=== PATIENT | male | born 1990 ===

== ENCOUNTER 2017-09-18 17:36 | Emergency (ER) | payer OTHER ==
[2017-09-18 17:36] VITALS: BMI 34.6
[2017-09-18] MEDS ORDERED: Sodium Chloride 0.9% 1,000 ML IV STA (19:06)
[2017-09-18] MEDS ORDERED: Iohexol 240 (50 ml) ONE (19:12)
--- NOTE | 2017-09-18 19:32 | ED PDOC ---
Arrival/HPI - General Chief Complaint: Abdominal Pain Time Seen by Provider: 09/18/17 18:22 Historian: Patient - History of Present Illness Narrative History of Present Illness (Text): 09/18/17 19:02 A 27 year old male presents to the emergency department complaining of intermittent mid-abdominal pain for 1.5 months. Patient describes pain as a pressure-like sensation. Also, he experiences a burning sensation in the epigastric area which radiates to the sternal chest area ad up into the throat with associated diarrhea. Patient states symptoms occur anytime when eating. Denies nausea, vomiting, fever, urinary output changes, weight loss, or any other complaints. No past abdominal surgeries. No PMD Past Medical History - Provider Review Nursing Documentation Reviewed: Yes - Reproductive Currently : No - Cardiac Hx Cardiac Disorders: No - Pulmonary Hx Respiratory Disorders: No - Neurological Hx Neurological Disorder: No - HEENT Hx Sinusitis: Yes - Renal Hx Renal Disorder: No - Endocrine/Metabolic Hx Endocrine Disorders: No - Hematological/Oncological Hx Blood Disorders: No - Integumentary Hx Dermatological Disorder: No - Musculoskeletal/Rheumatological Hx Musculoskeletal Disorders: No - Gastrointestinal Hx Gastrointestinal Disorders: No - Genitourinary/Gynecological Hx Genitourinary Disorders: No - Psychiatric Hx Psychophysiologic Disorder: No Hx Substance Use: No - Surgical History Other/Comment: NASAL Family/Social History - Physician Review Nursing Documentation Reviewed: Yes Family/Social History: No Known Family HX Smoking Status: Never Smoked Hx Alcohol Use: Yes Frequency of alcohol use: Socially Hx Substance Use: No Allergies/Home Meds Allergies/Adverse Reactions: Allergies No Known Allergies Allergy (Verified 09/18/17 18:03) Review of Systems - Physician Review All systems were reviewed & negative as marked: Yes - Review of Systems Constitutional: absent: Fatigue, Weight Change, Fevers ENT: Other (throat pain) Respiratory: absent: SOB, Cough, Sputum Cardiovascular: Chest Pain. absent: Palpitations, Edema Gastrointestinal: Abdominal Pain (epigastric region), Diarrhea. absent: Nausea , Vomiting Genitourinary Male: absent: Dysuria, Frequency, Hematuria, Urinary Output Changes Musculoskeletal: absent: Arthralgias, Back Pain, Neck Pain Skin: absent: Rash, Pruritis, Skin Lesions Neurological: absent: Headache, Dizziness, Focal Weakness Physical Exam Vital Signs Reviewed: Yes Vital Signs Temp Pulse Resp BP Pulse Ox 09/18/17 21:36 82 16 121/72 100 09/18/17 17:57 98.2 F 85 18 120/75 97 Temperature: Afebrile Blood Pressure: Normal Pulse: Regular Respiratory Rate: Normal Appearance: Positive for: Well-Appearing Pain Distress: Mild Mental Status: Positive for: Alert and Oriented X 3 - Systems Exam Head: Present: Atraumatic, Normocephalic Pupils: Present: PERRL Mouth: Present: Moist Mucous Membranes Pharnyx: Present: Normal Neck: Present: Normal Range of Motion. No: MIDLINE TENDERNESS Respiratory/Chest: Present: Clear to Auscultation, Good Air Exchange. No: Respiratory Distress, Wheezes, Rhonchi Cardiovascular: Present: Regular Rate and Rhythm, Normal S1, S2. No: Murmurs Abdomen: Present: Tenderness (mild lower abdominal tenderness). No: Rebound, Guarding, Hernias, Mass/Organomegaly, Scars Back: Present: Normal Inspection. No: CVA Tenderness, Midline Tenderness Upper Extremity: Present: Normal Inspection, Normal ROM, NORMAL PULSES, Neurovascularly Intact, Capillary Refill < 2s. No: Edema Lower Extremity: Present: Normal Inspection, NORMAL PULSES, Neurovascularly Intact, Capillary Refill < 2 s. No: Edema, Tenderness, Swelling Neurological: Present: GCS=15, CN II-XII Intact, Speech Normal, Motor Func Grossly Intact, Normal Sensory Function Skin: Present: Warm, Dry, Normal Color. No: Rashes Psychiatric: Present: Alert, Oriented x 3 Medical Decision Making ED Course and Treatment: 09/18/17 19:06 Impression: 27 year old male with intermittent mid-abdominal pain. Physical exam shows mild lower abdominal tenderness. Plan: -- Abd/Pelvis CT -- Labs -- Pepcid -- IV Fluids -- Reassess and disposition Prior Visits: Notes and results from previous visits were reviewed. Patient was last seen in the emergency department on 12/09/2016 for testicular/flank pain. Patient was discharged home. Progress Notes: On re-evaluation, patient is laying in bed comfortably in no acute distress, reports improvement of symptoms. Reports no abdominal pain or nausea at this time. On exam, abdomen remains soft with no tenderness, no guarding, no rebound. Labs reviewed and are wnl. Patient is tolerating po contrast. CT still pending. On second re-evaluation, patient is sitting up comfortably with no complaints at this time. Reports still no abdominal pain. Abdomen still soft and nontender. CT results reviewed and d/w the patient in great detail. Based on history, exam and diagnostic results plan will be for outpatient f/u. Dx of dyspepsia d/w the patient in great detail. Follow up with the clinic in 1-2 days without fail. Advised to take medication as prescribed. Return to the emergency room at any time for any new or worsening symptoms. Patient states he fully agrees with and understands discharge instructions. States that he agrees with the plan and disposition. Verbalized and repeated discharge instructions and plan. I have given the patient opportunity to ask any additional questions. - Lab Interpretations Lab Results: 09/18/17 19:30 09/18/17 19:30 Lab Results 09/18/17 19:30: Sodium 140, Potassium 4.1, Chloride 99, Carbon Dioxide 26, Anion Gap 18, BUN 18, Creatinine 0.8, Est GFR ( Amer) > 60, Est GFR (Non- Af Amer) > 60, Random Glucose 101, Calcium 9.7, Total Bilirubin 0.7, AST 43, ALT 76 H, Alkaline Phosphatase 107, Total Protein 8.2, Albumin 4.7, Globulin 3.5 , Albumin/Globulin Ratio 1.3, Lipase 34 09/18/17 19:30: WBC 6.1 D, RBC 4.51, Hgb 14.6, Hct 42.2, MCV 93.6, MCH 32.4, MCHC 34.6, RDW 12.6, Plt Count 288, MPV 9.9, Gran % 45.3 L, Lymph % (Auto) 40.7 H, Levy % (Auto) 11.3 H, Eos % (Auto) 2.5, Baso % (Auto) 0.2, Gran # 2.77, Lymph # 2.5, Levy # 0.7 H, Eos # 0.2, Baso # 0.01 - RAD Interpretation Narrative RAD Interpretations (Text): 09/18/17 23:50 CT A/P w/ PO & IV contrast : FINDINGS: Limitations: Motion artifact - mild. Lower thorax: Minimal atelectasis/scarring. ABDOMEN: Liver: Unremarkable. No mass. Gallbladder and bile ducts: No calcified stones. No ductal dilation. Pancreas: No ductal dilation. No mass. Spleen: No splenomegaly. Adrenals: No mass. Kidneys and ureters: No mass. No hydronephrosis. Stomach and bowel: No definite mural thickening. No obstruction. Appendix: Normal caliber. No inflammation. PELVIS: Bladder: Unremarkable. Reproductive: Unremarkable as visualized. ABDOMEN and PELVIS: Intraperitoneal space: No significant fluid collection. No free air. Bones/joints: No acute fracture. Soft tissues: Unremarkable. Vasculature: Unremarkable. No aneurysm. Lymph nodes: No pathologically enlarged lymph nodes. IMPRESSION: 1. No definite acute intraabdominal abnormality. 2. Incidental/non-acute findings are described above. Dictated By: Thierno Bethea MD Dictated Date/Time: 09/18/172153 Radiology Orders: 09/18/17 19:08 ABD PELVIS PO & IV CONTRAST [CT] Stat - Medication Orders Current Medication Orders: Discontinued Medications Famotidine (Pepcid) 20 mg IVP STAT STA Stop: 09/18/17 19:07 Last Admin: 09/18/17 19:53 Dose: 20 mg IVP Administration Document 09/18/17 19:53 HI (Rec: 09/18/17 19:53 MD [id number]) Charges for Administration # of IVP Administrations 1 Sodium Chloride (Sodium Chloride 0.9%) 1,000 mls @ 1,000 mls/hr IV .Q1H STA Stop: 09/18/17 20:05 Last Admin: 09/18/17 19:30 Dose: 1,000 mls/hr eMAR Start Stop Document 09/18/17 19:30 HI (Rec: 09/18/17 19:53 MD [id number]) Intravenous Solution Start Date 09/18/17 Start Time 19:30 - PA / CASHIER AND SALESPERSON / Resident Statement MD/ has reviewed & agrees with the documentation as recorded. - Scribe Statement The provider has reviewed the documentation as recorded by the Naya Mathur Provider Scribe Attestation: All medical record entries made by the uJdyibrita were at my direction and personally dictated by me. I have reviewed the chart and agree that the record accurately reflects my personal performance of the history, physical exam, medical decision making, and the department course for this patient. I have also personally directed, reviewed, and agree with the discharge instructions and disposition. Disposition/Present on Arrival - Present on Arrival Any Indicators Present on Arrival: No History of DVT/PE: No History of Uncontrolled Diabetes: No Urinary Catheter: No History of Decub. Ulcer: No History Surgical Site Infection Following: None - Disposition Have Diagnosis and Disposition been Completed?: Yes Diagnosis: Abdominal pain, Dyspepsia Disposition: HOME/ ROUTINE Disposition Time: 23:23 Patient Plan: Discharge Patient Problems: Current Active Problems Problem Status Onset Abdominal pain Acute Dyspepsia Acute Condition: STABLE Discharge Instructions (ExitCare): Chronic Indigestion (ED), Acute Abdominal Pain (ED) Print Language: ROMANIAN Additional Instructions: Thank you for letting us take care of you today. You were treated for abdominal pain, dyspepsia. The emergency medical care you received today was directed at your acute symptoms. If you were prescribed any medication, please fill it and take as directed. It may take several days for your symptoms to resolve. Return to the Emergency Department if your symptoms worsen, do not improve, or if you have any other problems. Please contact your doctor in 2 days for re-evaluation and follow up / or call one of the physicians/clinics you have been referred to that are listed on the Patient Visit Information form that is included in your discharge packet. Bring any paperwork you were given at discharge with you along with any medications you are taking to your follow up visit. Our treatment cannot replace ongoing medical care by a primary care provider (PCP) outside of the emergency department. Thank you for allowing the [facility] team to be part of your care today. If you had a CT scan: A Radiologist will review the ED reading if any change in treatment is needed we will contact you. Prescriptions: Famotidine [Pepcid] 40 mg PO DAILY #30 tablet Referrals: Thee Mc, [Primary Care Provider] - Follow up with primary [facility] at [facility] [Outside] - Follow up with primary Forms: Sansan (South Korean), WORK NOTE
[2017-09-18 19:53] LABS: BASO # 0.01 K/mm3 (0.0-2.0); BASO % 0.2 % (0.0-3.0); EOS # 0.2 (0.0-0.7); EOS % 2.5 % (1.5-5.0); GRAN # 2.77 (1.4-6.5); GRAN % 45.3 % (50.0-68.0); HEMATOCRIT 42.2 % (42.0-52.0); LYMPH # 2.5 (1.2-3.4); LYMPH % 40.7 % (22.0-35.0); MEAN CELL VOLUME 93.6 fl (80.0-105.0); MEAN CORPUSCULAR HEMOGLOBIN 32.4 pg (25.0-35.0); MEAN CORPUSCULAR HGB CONC 34.6 g/dl (31.0-37.0); MEAN PLATELET VOLUME 9.9 fl (7.0-11.0); MONO # 0.7 (0.1-0.6); MONO % 11.3 % (1.0-6.0); RED CELL DISTRIBUTION WIDTH 12.6 % (11.5-14.5); WHITE BLOOD COUNT 6.1 10^3/ul (4.5-11.0)
[2017-09-18 19:56] LABS: ALB/GLOB RATIO 1.3 (1.1-1.8); ALKALINE PHOSPHATASE 107 U/L (38-126); ALT/SGPT 76 U/L (7-56); AST/SGOT 43 U/L (17-59); BILIRUBIN,TOTAL 0.7 mg/dL (0.2-1.3); BLOOD UREA NITROGEN 18 mg/dL (7-21); CALCIUM 9.7 mg/dL (8.4-10.5); CARBON DIOXIDE 26 mmol/L (21-33); CHLORIDE 99 mmol/L (98-107); GFR AFRICAN-AMERICAN > 60; GLUCOSE,RANDOM 101 mg/dL (70-110); LIPASE 34 U/L (23-300); POTASSIUM 4.1 mmol/L (3.6-5.0); SODIUM 140 mmol/L (132-148); TOTAL PROTEIN 8.2 g/dL (5.8-8.3)
[2017-09-18] MEDS ORDERED: Iohexol 350 MG/100 ML VIAL ONE (20:26)
[2017-09-18 21:44] VITALS: O2SAT 100
--- NOTE | 2017-09-18 21:54 | CT ---
EXAM: CT Abdomen and Pelvis With Intravenous Contrast CLINICAL HISTORY: 27 years old, male; Pain; Abdominal pain; Acute; Additional info: Lower abd pain, diarrhea TECHNIQUE: Axial computed tomography images of the abdomen and pelvis with intravenous contrast. All CT scans at this facility use one or more dose reduction techniques, viz.: automated exposure control; ma/kV adjustment per patient size (including targeted exams where dose is matched to indication; i.e. head); or iterative reconstruction technique. Coronal and sagittal reformatted images were created and reviewed. CONTRAST: 100 mL of OMNI administered intravenously. COMPARISON: CT - ABD PELVIS W/O PO OR IV CONT 2016-12-09 08:35 FINDINGS: Limitations: Motion artifact - mild. Lower thorax: Minimal atelectasis/scarring. ABDOMEN: Liver: Unremarkable. No mass. Gallbladder and bile ducts: No calcified stones. No ductal dilation. Pancreas: No ductal dilation. No mass. Spleen: No splenomegaly. Adrenals: No mass. Kidneys and ureters: No mass. No hydronephrosis. Stomach and bowel: No definite mural thickening. No obstruction. Appendix: Normal caliber. No inflammation. PELVIS: Bladder: Unremarkable. Reproductive: Unremarkable as visualized. ABDOMEN and PELVIS: Intraperitoneal space: No significant fluid collection. No free air. Bones/joints: No acute fracture. Soft tissues: Unremarkable. Vasculature: Unremarkable. No aneurysm. Lymph nodes: No pathologically enlarged lymph nodes. IMPRESSION: 1. No definite acute intraabdominal abnormality. 2. Incidental/non-acute findings are described above.
[2017-09-19 00:15] VITALS: BP 116/67; PULSE 76; RESP 18; TEMP 98.3
== END 2017-09-18 23:50 | disposition home or self-care (01) ==
LOC: ED 17:36
DX: R10.13 Epigastric pain (principal)
CPT/HCPCS: 74177; 80053; 83690; 85025; 96374; 99284; J7040; Q9966; Q9967

== ENCOUNTER 2018-05-16 13:55 | Emergency (ER) | payer OTHER ==
[2018-05-16 14:16] VITALS: TEMP 98.2
[2018-05-16 14:18] VITALS: BMI 29.9
--- NOTE | 2018-05-16 14:42 | ED PDOC ---
Arrival/HPI - General Time Seen by Provider: 05/16/18 14:35 Historian: Patient - History of Present Illness Narrative History of Present Illness (Text): 28 y/o M c PMHx gastritis p/w fall shortly prior to arrival. Patient states he was on top of a 9-10 step ladder sanding a ceiling when the ladder slipped from under him and he fell that height and struck his head on the floor and felt an odd moving sensation in his neck. He now complains of pain to the head, posterior neck, and R shoulder. Denies pain elsewhere. Denies LOC, nausea, vomiting, numbness, motor weakness. No PMD Time/Duration: Prior to Arrival Symptom Onset: Sudden Symptom Course: Unchanged Context: Work Past Medical History - Provider Review Nursing Documentation Reviewed: Yes - Cardiac Hx Cardiac Disorders: No - Pulmonary Hx Respiratory Disorders: No - Neurological Hx Neurological Disorder: No - Renal Hx Renal Disorder: No - Endocrine/Metabolic Hx Endocrine Disorders: No - Hematological/Oncological Hx Blood Disorders: No - Integumentary Hx Dermatological Disorder: No - Musculoskeletal/Rheumatological Hx Musculoskeletal Disorders: No - Gastrointestinal Hx Gastrointestinal Disorders: No - Genitourinary/Gynecological Hx Genitourinary Disorders: No - Psychiatric Hx Psychophysiologic Disorder: No Hx Substance Use: No - Surgical History Other/Comment: NASAL Family/Social History - Physician Review Nursing Documentation Reviewed: Yes Family/Social History: No Known Family HX Smoking Status: Never Smoked Hx Alcohol Use: Yes Hx Substance Use: No Allergies/Home Meds Allergies/Adverse Reactions: Allergies No Known Allergies Allergy (Verified 09/18/17 18:03) Review of Systems - Physician Review All systems were reviewed & negative as marked: Yes - Review of Systems Respiratory: absent: SOB Cardiovascular: absent: Chest Pain Gastrointestinal: absent: Vomiting Physical Exam - Physical Exam Narrative Physical Exam (Text): Gen: NAD Head: Contusion to R forehead. No laceration. No facial tenderness. Eyes: PERRL. EOMI. ENT: No malocclusion of jaw. Neck: +midline tenderness. (Cervical collar placed immediately). Chest: No tenderness. No clavicular tenderness. CV: Regular rate. Radial pulses 2+ bilaterally. Lungs: CTA b/l. Back: +midline tenderness thoracic and lumbar without stepoffs. Abd: Soft, NT, ND Pelvis: Stable Extremities: FROM x 4. No edema. Pain with ROM of R shoulder. Skin: No laceration or ecchymosis. White dry wall like substance covering much of skin. Neuro: Alert, oriented x 3. Motor 5/5 x 4. Sensation to light touch intact bilaterally. Vital Signs Reviewed: Yes Vital Signs Temp Pulse Resp BP Pulse Ox 05/16/18 14:15 98.2 F 72 18 143/86 99 Temperature: Afebrile Blood Pressure: Normal Pulse: Regular Respiratory Rate: Normal Medical Decision Making ED Course and Treatment: Impression: Patient is a 28 year old male who presents to the Emergency department complaining of head, posterior neck, and right shoulder pain secondary to mechanical fall from ladder. Plan: --Morphine IM for pain control. Will assess further with imaging to rule out intracranial hemorrhage or fractures/dislocations. -- Reassess and disposition Prior Visits: Notes and results from previous visits were reviewed. Progress Notes: 05/16/18 17:[address] without contrast: Creator : Evans Melgoza MD IMPRESSION: No acute intracranial abnormalities. No significant findings to account for the clinical presentation. No significant interval change compared to the prior examination(s). 05/16/18 17:[address] without contrast: Creator : Evans Melgoza MD IMPRESSION: No acute findings related to/accounting for the clinical presentation. 05/16/18 17:[address] without contrast: Creator : Evans Melgoza MD IMPRESSION: Unremarkable CT of the thoracic spine. 05/16/[address] without contrast: Creator : Evans Melgoza MD IMPRESSION: Unremarkable CT of Lumbar Spine. 05/16/18 17:26 Shoulder X-ray shows no fracture or dislocation. Interpreted by me. 05/16/18 17:27 Reevaluation: On reevaluation the patient feels better and is in no acute distress. I have discussed the results and plan with the patient, who expresses understanding. Patient given the opportunity to ask question, all questions were answered and there is agreement with the plan to discharge the patient home. Patient is stable for discharge. Patient was instructed to follow up with physician/clinic in 1-2 days or return if symptoms persist/worsen or new concerning symptoms arise. - RAD Interpretation Radiology Orders: 05/16/18 14:36 CERVICAL SPINE W/O CONTRAST [CT] Stat HEAD W/O CONTRAST [CT] Stat LUMBAR SPINE W/O CONTRAST [CT] Stat THORACIC SPINE W/O CONT [CT] Stat SHOULDER RIGHT [RAD] Stat Web Applications Administrator: ED Physician, Radiologist - Medication Orders Current Medication Orders: Discontinued Medications Morphine Sulfate (Morphine) 4 mg IM STAT STA Stop: 05/16/18 14:37 Last Admin: 05/16/18 15:03 Dose: 4 mg MAR Pain Assessment Document 05/16/18 15:03 SF (Rec: 05/16/18 15:03 [email or web address]) Pain Reassessment Is this a pain reassessment? Yes Sleep Is patient sleeping during reassessment? No Presence of Pain Presence of Pain Yes Pain Scale Used Pain Scale Used Numeric Location Pain Location Body Site Neck Generalized Description Description Constant IM Administration Charges Document 05/16/18 15:03 SF (Rec: 05/16/18 15:03 [email or web address]) Injection Site MAR Injection Site Left Deltoid Charges for Administration # of IM Administrations 1 - Scribe Statement The provider has reviewed the documentation as recorded by the Scribe Koffi Pardo Provider Scribe Attestation: All medical record entries made by the Scribe were at my direction and personally dictated by me. I have reviewed the chart and agree that the record accurately reflects my personal performance of the history, physical exam, medical decision making, and the department course for this patient. I have also personally directed, reviewed, and agree with the discharge instructions and disposition. Disposition/Present on Arrival - Present on Arrival Any Indicators Present on Arrival: No History of DVT/PE: No History of Uncontrolled Diabetes: No Urinary Catheter: No History Surgical Site Infection Following: None - Disposition Have Diagnosis and Disposition been Completed?: Yes Diagnosis: Fall, Neck pain, Head injury Disposition: HOME/ ROUTINE Disposition Time: 17:28 Patient Plan: Discharge Patient Problems: Current Active Problems Problem Status Onset Fall Acute Head injury Acute Neck pain Acute Condition: STABLE Discharge Instructions (ExitCare): Concussion in Adults Prescriptions: Ibuprofen [Motrin] 600 mg PO Q6 #25 tab Referrals: Dasha Keys MD [Staff Provider] - Follow up with primary Forms: e-Zassi (British)
[2018-05-16] MEDS: Morphine 4 mg/ml ISec IM STA (15:03)
--- NOTE | 2018-05-16 17:21 | CT ---
Date of service: 05/16/2018 PROCEDURE: CT HEAD WITHOUT CONTRAST. HISTORY: fall from ladder, headstrike, confused COMPARISON: 08/01/2015 TECHNIQUE: Axial computed tomography images were obtained through the head/brain without intravenous contrast. Coronal and sagittal reconstructed images. Radiation dose: Total exam DLP = 860.35 mGy-cm. This CT exam was performed using one or more of the following dose reduction techniques: Automated exposure control, adjustment of the mA and/or kV according to patient size, and/or use of iterative reconstruction technique. FINDINGS: HEMORRHAGE: No intracranial hemorrhage. BRAIN: No mass effect or edema. No atrophy or chronic microvascular ischemic changes. VENTRICLES: Unremarkable. No hydrocephalus. CALVARIUM: Unremarkable. PARANASAL SINUSES: Unremarkable as visualized. No significant inflammatory changes. MASTOID AIR CELLS: Unremarkable as visualized. No inflammatory changes. OTHER FINDINGS: None. IMPRESSION: No acute intracranial abnormalities. No significant findings to account for the clinical presentation. No significant interval change compared to the prior examination(s).
--- NOTE | 2018-05-16 17:23 | CT ---
Date of service: 05/16/2018 PROCEDURE: CT Cervical Spine without contrast HISTORY: fall from ladder, neck pain COMPARISON: None available. TECHNIQUE: Axial computed tomography images were obtained of the cervical spine without the use of intravenous contrast. Coronal and sagittal reformatted images were created and reviewed. Radiation dose: Total exam DLP = 601.55 mGy-cm. This CT exam was performed using one or more of the following dose reduction techniques: Automated exposure control, adjustment of the mA and/or kV according to patient size, and/or use of iterative reconstruction technique. FINDINGS: VERTEBRAE: No fracture. Normal alignment. No destructive bony lesion. DISCS/SPINAL CANAL/NEURAL FORAMINA: No significant central canal or neural foraminal stenosis. Discs heights are grossly preserved. PARASPINAL SOFT TISSUES: Unremarkable. OTHER FINDINGS: None. IMPRESSION: No acute findings related to/accounting for the clinical presentation.
--- NOTE | 2018-05-16 17:24 | CT ---
Date of service: 05/16/2018 PROCEDURE: CT Thoracic Spine without contrast HISTORY: fall, midline tenderness COMPARISON: None available. TECHNIQUE: Axial computed tomography images were obtained of the thoracic spine without intravenous contrast. Coronal and sagittal reformatted images were created and reviewed. Radiation dose: Total exam DLP = 1439.81 mGy-cm. This CT exam was performed using one or more of the following dose reduction techniques: Automated exposure control, adjustment of the mA and/or kV according to patient size, and/or use of iterative reconstruction technique. FINDINGS: VERTEBRAE: Unremarkable. No fracture. Normal alignment. DISCS/SPINAL CANAL/NEURAL FORAMINA: Within the limits of the CT technique, no disc herniation seen. No central canal or neural foraminal stenosis.. PARASPINAL SOFT TISSUES: Unremarkable. OTHER FINDINGS: Unremarkable. IMPRESSION: Unremarkable CT of the thoracic spine.
--- NOTE | 2018-05-16 17:27 | CT ---
Date of service: 05/16/2018 PROCEDURE: CT Lumbar Spine without contrast HISTORY: fall from ladder, midline tenderness COMPARISON: None available. TECHNIQUE: Axial computed tomography images were obtained of the lumbar spine without the use of intravenous contrast. Coronal and sagittal reformatted images were created and reviewed. Radiation dose: Total exam DLP = 1290.71 mGy-cm. This CT exam was performed using one or more of the following dose reduction techniques: Automated exposure control, adjustment of the mA and/or kV according to patient size, and/or use of iterative reconstruction technique. FINDINGS: VERTEBRAE: Unremarkable. No fracture. Mild levoscoliosis. . DISCS/SPINAL CANAL/NEURAL FORAMINA: L1-2: Unremarkable. L2-3: Unremarkable. L3-4: Unremarkable. L4-5: Unremarkable. L5-S1: Unremarkable. PARASPINAL SOFT TISSUES: Unremarkable. OTHER FINDINGS: None. IMPRESSION: Unremarkable CT of Lumbar Spine.
--- NOTE | 2018-05-16 17:53 | RAD ---
Date of service: 05/16/2018 PROCEDURE: Radiographs of the Right Shoulder HISTORY: fall, shoulder pain COMPARISON: No prior. FINDINGS: BONES: Normal. No fracture. JOINTS: Normal. Glenohumeral and acromioclavicular joints preserved. No osteoarthritis. SOFT TISSUES: Normal. OTHER FINDINGS: None. IMPRESSION: Normal radiographs of the right shoulder.
[2018-05-16 18:05] VITALS: BP 138/82; PULSE 68; RESP 17; O2SAT 100
== END 2018-05-16 18:04 | disposition home or self-care (01) ==
LOC: ED 13:55
DX: S09.90XA Unspecified injury of head, initial encounter (principal); W11.XXXA Fall on and from ladder, initial encounter; Y92.9 Unspecified place or not applicable; M54.2 Cervicalgia
CPT/HCPCS: 70450; 72125; 72128; 72131; 73030; 96372; 99285; J2270

== ENCOUNTER 2018-06-06 19:10 | Observation (INO) | payer OTHER ==
[2018-06-06 20:20] LABS: MEAN CORPUSCULAR HEMOGLOBIN 32.5 pg (25.0-35.0); MEAN CORPUSCULAR HGB CONC 35.7 g/dl (31.0-37.0); MEAN PLATELET VOLUME 9.9 fl (7.0-11.0); RBC 4.31 10^6/uL (3.5-6.1); RED CELL DISTRIBUTION WIDTH 12.7 % (11.5-14.5)
[2018-06-06 20:24] LABS: INR 1.04; PROTHROMBIN TIME 11.9 SECONDS (9.4-12.5)
[2018-06-06 20:26] LABS: ALB/GLOB RATIO 1.3 (1.1-1.8); ALBUMIN 4.4 g/dL (3.0-4.8); ALT/SGPT 62 U/L (7-56); AST/SGOT 39 U/L (17-59); BLOOD UREA NITROGEN 16 mg/dL (7-21); CALCIUM 8.9 mg/dL (8.4-10.5); GFR NON-AFRICAN AMERICAN > 60
--- NOTE | 2018-06-06 20:27 | ED PDOC ---
Arrival/HPI - General Chief Complaint: Back Pain Time Seen by Provider: 06/06/18 19:34 Historian: Patient - History of Present Illness Narrative History of Present Illness (Text): 06/06/18 20:21 Patient is a 28 year old male with no significant past medical history, who presents to the Emergency department complaining of intermittent chest pain. Patient reports that his chest pain started a few weeks ago, and he occasionally experiences associated shortness of breath. He also notes that on occasion his chest pain radiates to the back. He admits to smoking, but denies any history of trauma or drug use. Patient denies any fever, chills, cough, or any other complaints at this time. Time/Duration: > week Symptom Onset: Sudden Symptom Course: Intermittent Context: Home Past Medical History - Provider Review Nursing Documentation Reviewed: Yes - Infectious Disease Hx of Infectious Diseases: None - Cardiac Hx Cardiac Disorders: No - Pulmonary Hx Respiratory Disorders: No - Neurological Hx Neurological Disorder: No - HEENT Hx HEENT Disorder: Yes - Renal Hx Renal Disorder: No - Endocrine/Metabolic Hx Endocrine Disorders: No - Hematological/Oncological Hx Blood Disorders: No - Integumentary Hx Dermatological Disorder: No - Musculoskeletal/Rheumatological Hx Musculoskeletal Disorders: No - Gastrointestinal Hx Gastrointestinal Disorders: No - Genitourinary/Gynecological Hx Genitourinary Disorders: No - Psychiatric Hx Psychophysiologic Disorder: No Hx Substance Use: No - Surgical History Other/Comment: NASAL Family/Social History - Physician Review Nursing Documentation Reviewed: Yes Family/Social History: No Known Family HX Smoking Status: Never Smoked Hx Alcohol Use: Yes Hx Substance Use: No Allergies/Home Meds Allergies/Adverse Reactions: Allergies No Known Allergies Allergy (Verified 09/18/17 18:03) Review of Systems - Physician Review All systems were reviewed & negative as marked: Yes - Review of Systems Constitutional: absent: Fevers, Night Sweats Respiratory: SOB. absent: Cough Cardiovascular: Chest Pain Musculoskeletal: Back Pain Physical Exam Vital Signs Reviewed: Yes Vital Signs Temp Pulse Resp BP Pulse Ox 06/06/18 19:30 98.6 F 84 18 131/81 96 Temperature: Afebrile Blood Pressure: Normal Pulse: Regular Respiratory Rate: Normal Appearance: Positive for: Well-Appearing Pain Distress: None Mental Status: Positive for: Alert and Oriented X 3 - Systems Exam Head: Present: Atraumatic, Normocephalic Pupils: Present: PERRL Extroacular Muscles: Present: EOMI Conjunctiva: Present: Normal Mouth: Present: Moist Mucous Membranes Neck: Present: Normal Range of Motion Respiratory/Chest: Present: Clear to Auscultation, Good Air Exchange. No: Respiratory Distress, Accessory Muscle Use Cardiovascular: Present: Regular Rate and Rhythm, Normal S1, S2. No: Murmurs Abdomen: No: Tenderness, Distention, Peritoneal Signs Back: Present: Normal Inspection Upper Extremity: Present: Normal Inspection. No: Cyanosis, Edema Lower Extremity: Present: Normal Inspection. No: Edema Neurological: Present: GCS=15, CN II-XII Intact, Speech Normal Skin: Present: Warm, Dry, Normal Color. No: Rashes Psychiatric: Present: Alert, Oriented x 3, Normal Insight, Normal Concentration Medical Decision Making ED Course and Treatment: 06/06/18 20:29 Impression: Patient is a 28 year old male who is complaining of intermittent chest pain with occasional association of dyspnea and pain radiating to back. Chest pain started a few weeks ago. Differential Diagnosis included but are not limited to: Cardiac Angina vs. Musculoskeletal Chest Pain vs. Pneumonia vs. Pneumothorax Plan: -- EKG -- Labs -- Cardiac enzymes -- Chest X-ray -- Reassess and disposition Prior Visits: Notes and results from previous visits were reviewed. Progress Notes: 06/06/18 EKG shows NSR at 84 bpm with RAD and inferior infarct scar. Interpreted by me. 06/06/18 22:29 Chest X-Ray reviewed, shows no acute processes. 06/06/18 22:50 Case discussed with quality engineer medical device senior construction project manager, who is aware and agrees with plan. 06/06/18 22:[address] Del Cid, who is aware and agrees with plan. Pt will go to Telemetry observation for chest pain under the hospitalist service. - Lab Interpretations Lab Results: 06/06/18 19:58 06/06/18 19:58 Lab Results 06/06/18 19:58: WBC 7.0, RBC 4.31, Hgb 14.0, Hct 39.2 L, MCV 91.0, MCH 32.5, MCHC 35.7, RDW 12.7, Plt Count 259, MPV 9.9 06/06/18 19:58: Sodium 142, Potassium 3.6, Chloride 104, Carbon Dioxide 25, Anion Gap 16, BUN 16, Creatinine 0.7 L, Est GFR ( Amer) > 60, Est GFR ( Non-Af Amer) > 60, Random Glucose 102, Calcium 8.9, Total Bilirubin 0.7, AST 39 , ALT 62 H, Alkaline Phosphatase 106, Lactate Dehydrogenase 501, Total Creatine Kinase 321 H, CK-MB (CK-2) 3.4, CK-MB (CK-2) % Cancelled, Troponin I < 0.01, NT- Pro-B Natriuret Pep 14.5, Total Protein 7.9, Albumin 4.4, Globulin 3.4, Albumin/ Globulin Ratio 1.3 06/06/18 19:58: PT 11.9, INR 1.04, APTT 29.0 I have reviewed the lab results: Yes - RAD Interpretation Radiology Orders: 06/06/18 19:38 CHEST PORTABLE [RAD] Stat Tax Examining Technician: ED Physician - EKG Interpretation Interpreted by ED Physician: Yes Type: 12 lead EKG - Medication Orders Current Medication Orders: Discontinued Medications Aspirin (Aspirin) 325 mg PO ONCE STA Stop: 06/06/18 22:30 Last Admin: 06/06/18 22:55 Dose: 325 mg Morphine Sulfate (Morphine) 2 mg IVP STAT STA Stop: 06/06/18 22:31 Last Admin: 06/06/18 22:55 Dose: 2 mg MAR Pain Assessment Document 06/06/18 22:55 IT (Rec: 06/06/18 22:55 IT [id number]) Pain Reassessment Is this a pain reassessment? No Sleep Is patient sleeping during reassessment? No Presence of Pain Presence of Pain Yes Pain Scale Used Pain Scale Used Numeric IVP Administration Document 06/06/18 22:55 IT (Rec: 06/06/18 22:55 IT [id number]) Charges for Administration # of IVP Administrations 1 - Scribe Statement The provider has reviewed the documentation as recorded by the Judyibrita Pardo Provider Scribe Attestation: All medical record entries made by the Scribe were at my direction and personally dictated by me. I have reviewed the chart and agree that the record accurately reflects my personal performance of the history, physical exam, medical decision making, and the department course for this patient. I have also personally directed, reviewed, and agree with the discharge instructions and disposition. Disposition/Present on Arrival - Present on Arrival Any Indicators Present on Arrival: No History of DVT/PE: No History of Uncontrolled Diabetes: No Urinary Catheter: No History of Decub. Ulcer: No History Surgical Site Infection Following: None - Disposition Have Diagnosis and Disposition been Completed?: Yes Diagnosis: Chest pain Disposition: HOSPITALIZED Disposition Time: 22:41 Patient Plan: Observation Patient Problems: Current Active Problems Problem Status Onset Chest pain Acute Condition: STABLE
[2018-06-06 20:38] LABS: B-TYPE NATRIURETIC PEPTIDE 14.5 pg/mL (0-450); TROPONIN I < 0.01 ng/mL
[2018-06-06 20:42] LABS: CK-MB 3.4 ng/mL (0.0-3.6)
[2018-06-06] MEDS ORDERED: Morphine 2 mg/ml ISec IVP STA (22:30)
[2018-06-07 00:14] VITALS: BMI 46.8
--- NOTE | 2018-06-07 00:15 | CP.PCM.HP ---
<Andrea Weinberg - Last Filed: 06/07/18 01:21> History of Present Illness - History of Present Illness History of Present Illness: Andrea Weinberg, PGY-1 History and Physical for Hospitalist Service CC: Chest Pain HPI: Mr. Moody is a 28 year old Cambodian speaking Male with a PMHx of gastritis who presents with 3 weeks of intermittent chest pain. Patient describes the chest pain, as well as an accompanying back pain, as a 7/10 and describes the pain as crampy. Patient describes the pain as reproducible to palpation both on the anterior chest and in the back and associated with palpitations and headaches. The pain occasionally catches the patients breath and is associated with numbness in the hands and feet when severe. Patient denies diaphoresis, nausea, or radiation into jaw. 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 Patient also notes that he works in mar[employer] environments frequently. Patient states the pain became too much since yesterday so patient sought evaluation. Patient has used Motrin on occasion to relieve the pain, but could not quantify how often. Patient denies fevers, chills, weakness, vision changes, sore throat, dizziness , abdominal pain, nausea, vomiting, diarrhea, constipation, changes in urinary or bowel habits, leg pain, rashes, recent travel, sick contacts, and changes in weight. PMHx: Gastritis, Recent fall PSHx: Unknown nasal surgery NKDA Social: Occasional ETOH and tobacco, denies IVDU. Works construction at multiple local sites. Meds: Pepcid 40 mg PO daily and Motrin 600 mg of unknown frequency Fam Hx: Mom and Sister have DM Interpretation assistance with PCP Bea Gonzalez. PMD: None Present on Admission - Present on Admission Any Indicators Present on Admission: No Review of Systems - Review of Systems Review of Systems: 12 point ROS completed and negative except as described in HPI. Past Patient History - Infectious Disease Hx of Infectious Diseases: None - Past Social History Smoking Status: Never Smoked - CARDIAC Hx Cardiac Disorders: No - PULMONARY Hx Respiratory Disorders: No - NEUROLOGICAL Hx Neurological Disorder: No - HEENT Hx HEENT Problems: Yes - RENAL Hx Chronic Kidney Disease: No - ENDOCRINE/METABOLIC Hx Endocrine Disorders: No - HEMATOLOGICAL/ONCOLOGICAL Hx Blood Disorders: No - INTEGUMENTARY Hx Dermatological Problems: No - MUSCULOSKELETAL/RHEUMATOLOGICAL Hx Musculoskeletal Disorders: No - GASTROINTESTINAL Hx Gastrointestinal Disorders: No - GENITOURINARY/GYNECOLOGICAL Hx Genitourinary Disorders: No - PSYCHIATRIC Hx Psychophysiologic Disorder: No Hx Substance Use: No - SURGICAL HISTORY Other/Comment: NASAL Meds Allergies/Adverse Reactions: Allergies Allergy/AdvReac Type Severity Reaction Status Date / Time No Known Allergies Allergy Verified 09/18/17 18:03 Physical Exam - Constitutional Appears: Well, Non-toxic, No Acute Distress - Head Exam Head Exam: ATRAUMATIC, NORMAL INSPECTION, NORMOCEPHALIC - Eye Exam Eye Exam: EOMI, Normal appearance Pupil Exam: PERRL - ENT Exam ENT Exam: Mucous Membranes Moist, Normal Exam - Neck Exam Neck exam: Positive for: Normal Inspection - Respiratory Exam Respiratory Exam: Decreased Breath Sounds, Clear to Auscultation Bilateral, NORMAL BREATHING PATTERN. absent: Rales, Rhonchi, Wheezes, Stridor - Cardiovascular Exam Cardiovascular Exam: REGULAR RHYTHM, RRR, +S1, +S2. absent: Gallop, Rubs Additional comments: TTP at sites of pain on central and R upper chest - GI/Abdominal Exam GI & Abdominal Exam: Normal Bowel Sounds, Soft. absent: Distended, Firm, Guarding, Rebound, Tenderness - Extremities Exam Extremities exam: Positive for: full ROM, normal inspection, pedal pulses present. Negative for: calf tenderness Additional comments: Recent scrapes over L tony, lateral-running scabs. - Back Exam Back exam: NORMAL INSPECTION. absent: CVA tenderness (L), CVA tenderness (R), paraspinal tenderness, vertebral tenderness Additional comments: TTP mid thoracic spine T4-T5 - Neurological Exam Neurological exam: Alert, Normal Gait, Oriented x3 - Psychiatric Exam Psychiatric exam: Normal Affect, Normal Mood - Skin Skin Exam: Dry, Intact, Normal Color, Warm Results - Vital Signs Recent Vital Signs: Last Vital Signs Temp 98.5 F 06/06/18 23:29 Pulse 89 06/06/18 23:29 Resp 17 06/06/18 23:29 BP 120/82 06/06/18 23:29 Pulse Ox 99 06/06/18 23:29 - Labs Result Diagrams: 06/06/18 19:58 06/06/18 19:58 Assessment & Plan - Assessment and Plan (Free Text) Assessment: Mr. Moody is a 28 year old Cambodian speaking Male with a PMHx of gastritis who presents with 3 weeks of intermittent chest pain. Plan: Atypical CP r/o ACS vs Chostochondritis 2/2 Recent Fall vs Gastritis Patient describes pain substernally in upper chest, unlike his symptoms of gastritis Pain reproducible on chest and upper back EKG shows NSR at 84 bpm. f/u repeat EKG in AM f/u CXR official read in AM. No effusions, cardiomegaly but some vascular congestion without consolidations. f/u trop x2. First was negative. CK 321 likely 2/2 to musculoskeletal damage Pain control with Morphine IVP 4 mg q4 PRN and Lidoderm patch on anterior chest NS @ 75 cc/hr f/u a1c, TSH, lipid panel, Mg, Phos, and AM labs Gastritis continue home med Pepcid 40 mg PO Morbid obesity Education provided on diet and physical activity HHD GI / DVT ppx Pepcid 40 mg PO SCD's Dispo: HHD Patient seen, case discussed, and plan reviewed with Dr. Norris. Andrea Weinberg, PGY-1 <Kris Norris - Last Filed: 06/08/18 02:17> Results - Vital Signs Recent Vital Signs: Last Vital Signs Temp 98.6 F 06/08/18 00:01 Pulse 63 06/08/18 00:01 Resp 20 06/08/18 00:01 BP 121/67 06/08/18 00:01 Pulse Ox 100 06/08/18 00:01 - Labs Result Diagrams: 06/07/18 05:30 06/07/18 05:30 Labs: Laboratory Results - last 24 hr 06/07/18 06/07/18 06/07/18 05:30 05:30 05:30 WBC 5.2 D RBC 4.37 Hgb 13.8 L Hct 40.3 L MCV 92.2 MCH 31.6 MCHC 34.2 RDW 13.0 Plt Count 263 MPV 9.9 Gran % 33.0 L Lymph % (Auto) 45.9 H Stanton % (Auto) 11.9 H Eos % (Auto) 9.0 H Baso % (Auto) 0.2 Gran # 1.72 Lymph # (Auto) 2.4 Stanton # (Auto) 0.6 Eos # (Auto) 0.5 Baso # (Auto) 0.01 D-Dimer, Quantitative Sodium 140 Potassium 3.8 Chloride 103 Carbon Dioxide 26 Anion Gap 14 BUN 15 Creatinine 0.6 L Est GFR ( Amer) > 60 Est GFR (Non-Af Amer) > 60 Random Glucose 103 Hemoglobin A1c 5.9 Calcium 9.0 Total Bilirubin 1.0 AST 43 ALT 59 H Alkaline Phosphatase 98 Troponin I < 0.01 Total Protein 7.5 Albumin 4.2 Globulin 3.3 Albumin/Globulin Ratio 1.3 Triglycerides 304 H Cholesterol 263 H LDL Cholesterol Direct 146 H HDL Cholesterol 48 06/07/18 13:10 WBC RBC Hgb Hct MCV MCH MCHC RDW Plt Count MPV Gran % Lymph % (Auto) Stanton % (Auto) Eos % (Auto) Baso % (Auto) Gran # Lymph # (Auto) Stanton # (Auto) Eos # (Auto) Baso # (Auto) D-Dimer, Quantitative < 200 Sodium Potassium Chloride Carbon Dioxide Anion Gap BUN Creatinine Est GFR ( Amer) Est GFR (Non-Af Amer) Random Glucose Hemoglobin A1c Calcium Total Bilirubin AST ALT Alkaline Phosphatase Troponin I Total Protein Albumin Globulin Albumin/Globulin Ratio Triglycerides Cholesterol LDL Cholesterol Direct HDL Cholesterol Attending/Attestation - Attestation I have personally seen and examined this patient.: Yes I have fully participated in the care of the patient.: Yes I have reviewed all pertinent clinical information: Yes
[2018-06-07] MEDS ORDERED: Sodium Chloride 0.9% 1,000 ML IV SCH (00:30)
[2018-06-07] MEDS ORDERED: Morphine 4 mg/ml ISec IVP PRN (00:35)
[2018-06-07] MEDS: Lidocaine 5% Patch TD SCH (01:09)
[2018-06-07 01:26] LABS: TROPONIN I < 0.01 ng/mL
[2018-06-07 06:42] LABS: BASO # 0.01 K/mm3 (0.0-2.0); BASO % 0.2 % (0.0-3.0); EOS # 0.5 (0.0-0.7); GRAN # 1.72 (1.4-6.5); HEMOGLOBIN 13.8 g/dL (14.0-18.0); LYMPH # 2.4 (1.2-3.4); LYMPH % 45.9 % (22.0-35.0); MEAN CELL VOLUME 92.2 fl (80.0-105.0); MEAN CORPUSCULAR HEMOGLOBIN 31.6 pg (25.0-35.0); MEAN CORPUSCULAR HGB CONC 34.2 g/dl (31.0-37.0); MEAN PLATELET VOLUME 9.9 fl (7.0-11.0); MONO # 0.6 (0.1-0.6); MONO % 11.9 % (1.0-6.0); RBC 4.37 10^6/uL (3.5-6.1); WHITE BLOOD COUNT 5.2 10^3/ul (4.5-11.0)
[2018-06-07 06:57] LABS: ALB/GLOB RATIO 1.3 (1.1-1.8); ALBUMIN 4.2 g/dL (3.0-4.8); ALT/SGPT 59 U/L (7-56); AST/SGOT 43 U/L (17-59); BLOOD UREA NITROGEN 15 mg/dL (7-21); GFR NON-AFRICAN AMERICAN > 60; HDL CHOLESTEROL 48 mg/dL (29-60)
[2018-06-07 07:08] LABS: LDL CHOLESTEROL 146 mg/dL (0-129); TROPONIN I < 0.01 ng/mL
--- NOTE | 2018-06-07 09:40 | RAD ---
Date of service: 06/06/2018 HISTORY: pain COMPARISON: No prior. FINDINGS: LUNGS: No active pulmonary disease. PLEURA: No significant pleural effusion identified, no pneumothorax apparent. CARDIOVASCULAR: Mild cardiomegaly and mild vascular congestion OSSEOUS STRUCTURES: No significant abnormalities. VISUALIZED UPPER ABDOMEN: Normal. OTHER FINDINGS: None. IMPRESSION: Mild vascular congestion
--- NOTE | 2018-06-07 13:47 | RAD ---
Date of service: 06/07/2018 PROCEDURE: Bilateral ribs HISTORY: fall COMPARISON: TECHNIQUE: Four views FINDINGS: There is no displaced rib fracture. There is no pneumothorax IMPRESSION: Negative study
--- NOTE | 2018-06-07 18:28 | CARD ---
APPROVED REPORT Date of service: 06/07/2018 EXAM: Two-dimensional and M-mode echocardiogram with Doppler and color Doppler. INDICATION Chest Pain 2D DIMENSIONS Left Atrium (2D)4.0 (1.6-4.0cm)IVSd1.1 (0.7-1.1cm) LVDd5.0 (3.9-5.9cm)PWd1.2 (0.7-1.1cm) LVDs3.4 (2.5-4.0cm)FS (%) 32.2 % LVEF (%)60.3 (>50%) M-Mode DIMENSIONS Aortic Root3.50 (2.2-3.7cm)Aortic Cusp Exc.1.90 (1.5-2.0cm) Aortic Valve AoV Peak Hmgtgxqv617.0cm/Mei Peak GR.12mmHg Mitral Valve MV E Fhthbsos57.4cm/sMV A Lzfetfsv55.5cm/sE/A ratio1.1 TDI Lateral E' Peak V15.40cm/sMedial E' Peak V9.65cm/sE/Lateral E'5.5 E/Medial E'8.8 Pulmonary Valve PV Peak Qpulsojc34.3cm/sPV Peak Grad.3mmHg Tricuspid Valve TR Peak [id number]/sRAP [id number] Peak Gr.41mmHg [id number] LEFT VENTRICLE The left ventricle is normal size. There is normal left ventricular wall thickness. The left ventricular function is normal. The left ventricular ejection fraction is within the normal range. There is normal LV segmental wall motion. The left ventricular diastolic function is normal. RIGHT VENTRICLE The right ventricle is normal size. There is normal right ventricular wall thickness. The right ventricular systolic function is normal. ATRIA The left atrium size is normal. The right atrium size is normal. AORTIC VALVE The aortic valve is normal in structure. No aortic regurgitation is present. There is no aortic valvular stenosis. MITRAL VALVE The mitral valve is normal in structure. Mitral regurgitation is trace. There is no mitral valve stenosis. TRICUSPID VALVE The tricuspid valve is normal in structure. There is mild to moderate tricuspid regurgitation. There is mild to moderate pulmonary hypertension. GREAT VESSELS The aortic root is normal in size. The IVC is normal in size and collapses >50% with inspiration. PERICARDIAL EFFUSION There is no pericardial effusion. <Conclusion> The left ventricle is normal size. There is normal left ventricular wall thickness. The left ventricular function is normal. The left ventricular ejection fraction is within the normal range. There is normal LV segmental wall motion. The left ventricular diastolic function is normal. There is mild to moderate tricuspid regurgitation. There is mild to moderate pulmonary hypertension.
--- NOTE | 2018-06-07 18:42 | CON ---
Copied To: Reynaldo Mills MD Attending MD: Reynaldo Mills MD DATE: 06/07/2018 REASON FOR CONSULTATION: Chest pain. 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 The patient stated that three weeks ago, he sustained a fall from a ladder while doing construction. The patient was evaluated in the emergency room and was discharged after a month with x-rays and CAT scans. The patient is experiencing retrosternal chest pain that increases by his hand pressure. The patient is unaware of any prior cardiac history. The patient is on no medications. SOCIAL HISTORY: Former smoker. He works as a construction safety consultant. PAST MEDICAL HISTORY: The patient has what appears to be psoriasis for which he receives local cream from his primary physician. MEDICATIONS: Aspirin 81 mg once a day, Lipitor 40 mg once a day, morphine sulfate 4 mg every 4 hours p.r.n. PHYSICAL EXAMINATION: GENERAL: The patient is a young middle-aged male who is morbidly obese, does not appear to be in any distress. VITAL SIGNS: Blood pressure 121/85, heart rate 73, temperature 97.8, respiration 18. HEENT: Normocephalic. CHEST: Clear. HEART: Sounds regular. ABDOMEN: Soft. EXTREMITIES: No edema. LABORATORY DATA: Today's hemoglobin and hematocrit 13.8 and 40.3. White count and platelet count are within normal limit. SMA-7 is within normal limit except for a creatinine of 0.6. Three sets of troponins are negative. Triglycerides 304. LDL cholesterol 263, HDL is 146, all are elevated. TSH levels are within normal limits. PT, PTT, and INR are within normal limits. EKG revealed normal sinus rhythm. Three weeks ago, head CT scan, lumbar spine CT scan, right shoulder x-ray, thoracic spine CT scan, chest x-ray and cervical spine CT scan were all unremarkable. ASSESSMENT: 1. Chest pain, consider underlying musculoskeletal pain, myocardial infarction is ruled out. 2. Morbid obesity. 3. Hyperlipidemia. 4. Status post fall from a ladder three weeks ago. RECOMMENDATIONS: Continue aspirin 81 mg once a day, Lipitor 40 mg once a day. Obtain bilateral . I will follow echocardiographic study performed today and obtain stat serum D-dimer. Reynaldo Mills MD [facility] # [phone]
--- NOTE | 2018-06-07 19:22 | CARD ---
APPROVED REPORT Date of service: 06/07/2018 EKG Measurement Heart [id number] <Conclusion> Normal sinus rhythm Normal ECG
--- NOTE | 2018-06-07 19:28 | CARD ---
APPROVED REPORT Date of service: 06/06/2018 EKG Measurement Heart [id number] [id number] <Conclusion> Normal sinus rhythm Right axis deviation Possible Inferior infarct, age undetermined Abnormal ECG
[2018-06-07] MEDS: Sodium Chloride 0.9% 1,000 ML IV SCH (20:12)
[2018-06-08 00:17] VITALS: O2SAT 100
[2018-06-08 06:19] VITALS: BP 104/68; RESP 16; TEMP 98.1
[2018-06-08 06:34] LABS: ALB/GLOB RATIO 1.2 (1.1-1.8); ALT/SGPT 62 U/L (7-56); AST/SGOT 39 U/L (17-59); BLOOD UREA NITROGEN 12 mg/dL (7-21); CALCIUM 8.8 mg/dL (8.4-10.5); GFR NON-AFRICAN AMERICAN > 60
[2018-06-08 06:44] LABS: BASO # 0.02 K/mm3 (0.0-2.0); BASO % 0.4 % (0.0-3.0); EOS # 0.6 (0.0-0.7); EOS % 12.2 % (1.5-5.0); GRAN # 1.69 (1.4-6.5); GRAN % 34.2 % (50.0-68.0); LYMPH % 40.6 % (22.0-35.0); MEAN CELL VOLUME 92.3 fl (80.0-105.0); MEAN CORPUSCULAR HEMOGLOBIN 31.9 pg (25.0-35.0); MEAN CORPUSCULAR HGB CONC 34.6 g/dl (31.0-37.0); MEAN PLATELET VOLUME 10.2 fl (7.0-11.0); MONO # 0.6 (0.1-0.6); MONO % 12.6 % (1.0-6.0); RBC 4.39 10^6/uL (3.5-6.1); RED CELL DISTRIBUTION WIDTH 12.7 % (11.5-14.5); WHITE BLOOD COUNT 4.9 10^3/ul (4.5-11.0)
[2018-06-08] MEDS: Lidocaine 5% Patch TD SCH (09:47)
[2018-06-08] MEDS: Sodium Chloride 0.9% 1,000 ML IV SCH (09:49)
--- NOTE | 2018-06-08 14:37 | CP.PCM.DIS ---
Provider - Provider Date of Admission: 06/06/18 22:39 Attending physician: Xin Graff DO Primary care physician: NO PRIMARY CARE PROVIDER Consults: cardiology Dr Gregory Time Spent in preparation of Discharge (in minutes): 45 Hospital Course - Lab Results Lab Results: Most Recent Lab Values WBC 4.9 10^3/ul (4.5-11.0) 06/08/18 05:45 RBC 4.39 10^6/uL (3.5-6.1) 06/08/18 05:45 Hgb 14.0 g/dL (14.0-18.0) 06/08/18 05:45 Hct 40.5 % (42.0-52.0) L 06/08/18 05:45 MCV 92.3 fl (80.0-105.0) 06/08/18 05:45 MCH 31.9 pg (25.0-35.0) 06/08/18 05:45 MCHC 34.6 g/dl (31.0-37.0) 06/08/18 05:45 RDW 12.7 % (11.5-14.5) 06/08/18 05:45 Plt Count 257 10^3/uL (120.0-450.0) 06/08/18 05:45 MPV 10.2 fl (7.0-11.0) 06/08/18 05:45 Gran % 34.2 % (50.0-68.0) L 06/08/18 05:45 Lymph % (Auto) 40.6 % (22.0-35.0) H 06/08/18 05:45 Moffat % (Auto) 12.6 % (1.0-6.0) H 06/08/18 05:45 Eos % (Auto) 12.2 % (1.5-5.0) H 06/08/18 05:45 Baso % (Auto) 0.4 % (0.0-3.0) 06/08/18 05:45 Gran # 1.69 (1.4-6.5) 06/08/18 05:45 Lymph # (Auto) 2.0 (1.2-3.4) 06/08/18 05:45 Moffat # (Auto) 0.6 (0.1-0.6) 06/08/18 05:45 Eos # (Auto) 0.6 (0.0-0.7) 06/08/18 05:45 Baso # (Auto) 0.02 K/mm3 (0.0-2.0) 06/08/18 05:45 PT 11.9 SECONDS (9.4-12.5) 06/06/18 19:58 INR 1.04 06/06/18 19:58 APTT 29.0 Seconds (25.1-36.5) 06/06/18 19:58 D-Dimer, Quantitative < 200 ng/mlDDU (0-243) 06/07/18 13:10 Sodium 141 mmol/L (132-148) 06/08/18 05:30 Potassium 4.1 mmol/L (3.6-5.0) 06/08/18 05:30 Chloride 103 mmol/L (98-107) 06/08/18 05:30 Carbon Dioxide 27 mmol/L (21-33) 06/08/18 05:30 Anion Gap 15 (10-20) 06/08/18 05:30 BUN 12 mg/dL (7-21) 06/08/18 05:30 Creatinine 0.6 mg/dl (0.8-1.5) L 06/08/18 05:30 Est GFR ( Amer) > 60 06/08/18 05:30 Est GFR (Non-Af Amer) > 60 06/08/18 05:30 Random Glucose 107 mg/dL (70-110) 06/08/18 05:30 Hemoglobin A1c 5.9 % (4.2-6.5) 06/07/18 05:30 Calcium 8.8 mg/dL (8.4-10.5) 06/08/18 05:30 Phosphorus 3.9 mg/dL (2.5-4.5) 06/07/18 00:30 Magnesium 2.1 mg/dL (1.7-2.2) 06/07/18 00:30 Total Bilirubin 0.9 mg/dL (0.2-1.3) 06/08/18 05:30 AST 39 U/L (17-59) 06/08/18 05:30 ALT 62 U/L (7-56) H 06/08/18 05:30 Alkaline Phosphatase 94 U/L (38-126) 06/08/18 05:30 Lactate Dehydrogenase 501 U/L (333-699) 06/06/18 19:58 Total Creatine Kinase 321 U/L (35-230) H 06/06/18 19:58 CK-MB (CK-2) 3.4 ng/mL (0.0-3.6) 06/06/18 19:58 CK-MB (CK-2) % Cancelled 06/06/18 19:58 Troponin I < 0.01 ng/mL 06/07/18 05:30 NT-Pro-B Natriuret Pep 14.5 pg/mL (0-450) 06/06/18 19:58 Total Protein 7.2 g/dL (5.8-8.3) 06/08/18 05:30 Albumin 4.0 g/dL (3.0-4.8) 06/08/18 05:30 Globulin 3.2 gm/dL 06/08/18 05:30 Albumin/Globulin Ratio 1.2 (1.1-1.8) 06/08/18 05:30 Triglycerides 304 mg/dL (35-160) H 06/07/18 05:30 Cholesterol 263 mg/dL (130-200) H 06/07/18 05:30 LDL Cholesterol Direct 146 mg/dL (0-129) H 06/07/18 05:30 HDL Cholesterol 48 mg/dL (29-60) 06/07/18 05:30 TSH 3rd Generation 3.01 mIU/mL (0.46-4.68) 06/07/18 00:30 - Hospital Course Hospital Course: Hospital course: 28 year old Czech speaking Male with a PMHx of gastritis who presents with 3 weeks of intermittent chest pain which is parasternal in upper chest, unlike his symptoms of gastritis. Pain was reproducible, radiated to the back. Patient got admitted to rule out ACS his risk factors of obesity and hyperlipidemia. EKG showed NSR. CXR showed mildcardiomegaly and mild vascular congestion. Rib X ray did not show any fracture. Troponin were negative x3. CK was elevated at 321 likely due to musculoskeletal injury. Patient was medically managed with pain medication and fluids. Patient was seen by director gift Dr Gregory who recommended the patient to be on Lipitor 40mg daily. Echocardiogram was normal. Patient is morbidly obese, education provided on diet and physical activity and low cholesterol diet. Patient was clinically optimized for discharge. Appointment was made for him at [facility] for follow up. On discharge: Please follow up with [facility] for your scheduled appointment on Monday06/15/18 at 1:30 pm Please avoid strenuous exercise heavy lifting to allow for chest muscles to heal. Take Tylenol as prescribed for muscle pain Please start taking Atorvastatin 40 mg one a day to control your high cholesterol levels Please return to nearest emergency department if your symptoms recur Please follow heart healthy diet and exercise regimen and weight loss to reduce the risk if having stroke or hear heart attacks Discharge Exam - Head Exam Head Exam: ATRAUMATIC, NORMAL INSPECTION, NORMOCEPHALIC - Eye Exam Eye Exam: EOMI, Normal appearance, PERRL Pupil Exam: NORMAL ACCOMODATION, PERRL - ENT Exam ENT Exam: Mucous Membranes Moist, Normal Exam - Neck Exam Neck exam: Full Rom, Normal Inspection - Respiratory Exam Respiratory Exam: Clear to PA & Lateral, NORMAL BREATHING PATTERN - Cardiovascular Exam Cardiovascular Exam: REGULAR RHYTHM, +S1, +S2 - GI/Abdominal Exam GI & Abdominal Exam: Normal Bowel Sounds - Rectal Exam Rectal Exam: Deferred - Extremities Exam Extremities exam: full ROM, normal capillary refill - Back Exam Back exam: NORMAL INSPECTION - Neurological Exam Neurological exam: Alert, CN II-XII Intact, Normal Gait, Oriented x3, Reflexes Normal - Psychiatric Exam Psychiatric exam: Normal Affect, Normal Mood - Skin Skin Exam: Dry, Intact, Normal Color, Warm Discharge Plan - Discharge Medications Prescriptions: Atorvastatin [Lipitor] 40 mg PO DIN 30 Days tab Famotidine [Pepcid] 40 mg PO DAILY #30 tablet - Follow Up Plan Condition: STABLE Disposition: HOME/ ROUTINE Instructions: Chest Pain (DC), Chest Pain (GEN) Additional Instructions: Please follow up with [facility] for your scheduled appointment on Monday06/15/18 at 1:30 pm Please avoid strenuous exercise heavy lifting to allow for chest muscles to heal. Take Tylenol as prescribed for muscle pain Please start taking Atorvastatin 40 mg one a day to control your high cholesterol levels Please return to nearest emergency department if your symptoms recur Please follow heart healthy diet and exercise regimen and weight loss to reduce the risk if having stroke or hear heart attacks Referrals: PCP,NO [Primary Care Provider] -
--- NOTE | 2018-06-08 15:27 | PN ---
Copied To: Reynaldo Mills MD Attending MD: Reynaldo Mills MD DATE: 06/08/2018 SUBJECTIVE: The patient complains of very sharp chest pain involving the right side of the chest under his right axilla. PHYSICAL EXAMINATION: VITAL SIGNS: Blood pressure 104/68, heart rate 68, temperature 98.1, respirations 16. HEENT: Normocephalic. CHEST: Clear. HEART: S1, S2 regular. EXTREMITIES: No edema. LABORATORY STUDIES: Hemoglobin and hematocrit 14 and 40.5. White count and platelet count are within normal limits. Today's SMA-7 is within normal limits except for creatinine of 0.6. Echocardiographic study revealed normal left ventricular size, wall thickness and ejection fraction with [id number] pulmonary hypertension. D-dimer was within normal limits. Bilateral rib series was unremarkable. ASSESSMENT: 1. Atypical chest pain, myocardial infarction is ruled out. 2. Status post fall from a ladder on the ceramic floor recently with residual right-sided chest pain. 3. Hyperlipidemia. RECOMMENDATIONS: Continue on aspirin 81 mg once a day, Lipitor 20 mg once a day and p.r.n. morphine sulfate. Case was discussed with the hospitalist. No further cardiac workup is indicated at this time. Reynaldo Mills MD
[2018-06-08 15:51] VITALS: PULSE 70
== END 2018-06-08 15:56 | disposition home or self-care (01) ==
LOC: ED 19:10 → ERH 22:39 → 3RNO 23:18
PROVIDERS: ADMIT Hospitalist; ATTEND Hospitalist
DX: R07.89 Other chest pain (principal); E66.01 Morbid (severe) obesity due to excess calories; Z68.42 Body mass index [BMI] 45.0-49.9, adult; E78.5 Hyperlipidemia, unspecified; K29.70 Gastritis, unspecified, without bleeding; F17.200 Nicotine dependence, unspecified, uncomplicated; Z91.81 History of falling
CPT/HCPCS: 36415; 71045; 71110; 80053; 80061; 82550; 82553; 83036; 83615; 83735; 83880; 84100; 84443; 84484; 85025; 85027; 85378; 85610; 85730; 93005; 93306; 96374; 97161; 99285; G0378; G8979; G8980; J2270; J7030; J7040